=== PATIENT | female | born 1960 | race Caucasian/White ===

== ENCOUNTER → 2017-02-25 09:57 | Outpatient (CLI) | payer OTHER ==
[2014-11-17 06:04] VITALS: BMI 34.0
[~2017-02-25 09:57] MED LIST: ADIPEX-P37.5 MG PO; BAYER CHEWABLE81 MG PO; DEMEROL50 MG PO; GABAPENTIN100 MG PO; MYRBETRIG PO; PRILOSEC20 MG PO; PROMETRIUM100 MG PO; REQUIP0.5 MG PO; TOPAMAX50 MG PO; WELLBUTRIN SR150 MG PO; ZANAFLEX4 MG PO
== END | disposition home or self-care (01) ==
LOC: D.CT 09:57
DX: R10.84 Generalized abdominal pain (principal); K92.1 Melena

== ENCOUNTER 2017-03-12 13:00 | Outpatient (CLI) | payer OTHER ==
[2014-11-17 06:04] VITALS: BMI 34.0
== END 2017-03-12 23:59 | disposition home or self-care (01) ==
LOC: D.MAMMO 13:00
DX: Z12.31 Encounter for screening mammogram for malignant neoplasm of breast (principal)

== ENCOUNTER → 2018-04-21 18:33 | Outpatient (CLI) | payer OTHER ==
[2014-11-17 06:04] VITALS: BMI 34.0
== END | disposition home or self-care (01) ==
LOC: D.MAMMO 09:45
DX: Z12.31 Encounter for screening mammogram for malignant neoplasm of breast (principal)

== ENCOUNTER → 2018-05-05 08:47 | Outpatient (CLI) | payer OTHER ==
[2014-11-17 06:04] VITALS: BMI 34.0
== END | disposition home or self-care (01) ==
LOC: D.MRI 08:47
DX: M25.562 Pain in left knee (principal)

== ENCOUNTER 2019-08-17 08:00 | Outpatient (CLI) | payer OTHER ==
[2014-11-17 06:04] VITALS: BMI 34.0
== END 2019-08-17 23:59 | disposition home or self-care (01) ==
LOC: D.MAMMO 08:00
PROVIDERS: ATTEND Family Medicine
DX: Z12.31 Encounter for screening mammogram for malignant neoplasm of breast (principal)

== ENCOUNTER 2019-10-23 14:54 | Inpatient (IN) | payer OTHER ==
[~2019-10-23] VITALS: Ht 154.9 cm; Wt 81.1 kg
--- NOTE | ~2019-10-23 | DS ---
PATIENT:PHOENIX ZAPATA :58 MEDICAL RECORD: [id number] DISCHARGE SUMMARY ADMISSION DATE: 10/24/19 DISCHARGE DATE: 10/25/19 DATE OF SERVICE: 10/25/2019 DIAGNOSES: 1. Paroxysmal atrial fibrillation. 2. Chest pain. 3. Normal cardiac catheterization. 4. Hypertension. 5. Hyperlipidemia. HOSPITAL COURSE: Ms. Zapata presents with anginal symptomatology in association with atrial fibrillation. Atrial fibrillation was controlled with sotalol. She underwent cardiac catheterization revealing no significant disease. Discharged home with the addition of sotalol 40 mg b.i.d. to her medical regimen. Follow up with [facility] in 1 month. TRANSINT:[id number] Voice Confirmation ID: [id number] DOCUMENT ID: [id number] EDILIA AMADOR MD CC: [id number] DICTATION DATE: 10/25/19 1049 IS ANALYST: 10/26/19 0534 DIS IN 10/25/19 [facility] [address] [place] [address]
--- NOTE | ~2019-10-23 | HEMODYNAMI ---
PATIENT:PHOENIX GENTILE MEDICAL RECORD: [id number] : 58 [id number] ADMISSION DATE: 10/24/19 Generatedon:10/25/201910:58 Patient name: PHOENIX GENTILE Patient #: [id number] SSN: [id number] : 1960 Date of study: 10/25/2019 Page: Of Hemodynamic Procedure Report Patient Data Patient Demographics Procedure consent was obtained First Name: PHOENIX Gender: Female Last Name: KRUPA : 1960 [facility] Initial: L Age: 59 year(s) Patient #: [id number] Race: SSN: [id number] Additional ID: [id number] Contact details Address: [address] [place] [address] [facility] State: [place] City: [place] Zip code: [address] Past Medical History Allergies Allergen Reaction Date Comments Reported Other allergy 10/25/2019 CODEINE Admission Admission Data Admission Date: 10/24/2019 Admission Time: 13:57 Arrival Date: 10/25/2019 Arrival Time: 0:00 Room #: D.2124 Insurance Payor: Private health insurance [facility] #: [id number] Height (in.): 61.02 BSA: 1.8 (m2) Height (cm.): 155 BMI: 33.71 (kg/m2) Weight (lbs.): 178.58 Weight (kg.): 81 Lab Results Lab Result Date: 10/25/2019 Lab Result Time: 0:00 Biochemistry Name Units Result Min Max BUN mg/dl 29 --(----)-* 7 18 Creatinine mg/dl 1.2 --(---*)-- 0.6 1.3 eGFR ml/min 48 *-(----)-- 90 120 NONAFRICAN Troponin l ng/ml 0.017 --(-*--)-- 0 0.06 CBC Name Units Result Min Max Hematocrit % 40.2 -*(----)-- 42 54 Hemoglobin g/dl 12.9 -*(----)-- 13.5 17.5 Procedure Procedure Types Cath Procedure Diagnostic Procedure [facility] w/Coronaries Sedation Charges Moderate Sedation up to 15 minutes Procedure Description Procedure Date Procedure Date: 10/25/2019 Procedure Start Time: 10:37 Procedure End Time: 10:56 Procedure Staff Name Function Rc Fragoso MD Performing Physician Annetta Vargas RT Monitor Marcos Beltre RN Nurse Kerrie Benjamin RT Scrub Indication Unstable angina Procedure Data Cath Procedure Fluoroscopy Diagnostic fluoroscopy Total fluoroscopy Time: 2.6 time: 2.6 min min Diagnostic fluoroscopy Total fluoroscopy dose: 361 dose: 361 mGy mGy Contrast Material Contrast Material Type Amount (ml) Isovue 300 30 Entry Location Entry Primary Successful Side Size Upsize Upsize Entry Closure Schumacher ccessful Closure Location (Fr) 1 (Fr) 2 (Fr) Remarks Device Remarks Radial Right 6 Fr Mechanical artery Short Compression Estimated blood loss: 5 ml Diagnostic catheters Device Type Used For End Catheter Placement DIAGNOSTIC [facility] 110cm 5 Procedure Fr catheter ([id number]) Procedure Complications No complications Procedure Medications Medication Administration Route Dosage Oxygen etCO2 Nasal cannula 2 l/min Lidocaine 2% added to field 20 Heparin Flush Bag added to field 2 bags (1000units/500ml NS) 0.9% NaCl I.V. 100 ml/hr Radial Cocktail I.A. 1 syringe (Verapamil 2mg/Nitro 400mcg/Heparin 1500units) Versed I.V. 1 mg Fentanyl I.V. 50 mcg Versed I.V. 1 mg Fentanyl I.V. 25 mcg Versed I.V. 0.5 mg 0.9% NaCl I.V. bolus 500 ml Hemodynamics Rest BSA: 1.8 (m2) HGB: 12.9 (g/dl) O2 Consumption: Estimated: 161.7 (ml/min) O2 Cons umption indexed: Estimated:89.83 (ml/min/m) Heart Rate: 57 (bpm) Snapshots Pre Cath Intra NCS Post Cath Vital Signs Time Heart Resp SPO2 etCO2 NIBP (mmHg) Rhythm Pain Sedation Rate (ipm) (%) (mmHg) Status Level (bpm) 10:01:46 65 19 93 0 163/85(114) NSR 0 (11) 10(A) , No pain 10:06:08 62 22 96 0 152/79(111) NSR 0 (11) 10(A) , No pain 10:10:31 57 11 96 0 131/59(93) NSR 0 (11) 10(A) , No pain 10:14:47 54 12 94 0 115/59(74) NSR 0 (11) 10(A) , No pain 10:18:57 53 13 95 0 108/59(75) NSR 0 (11) 10(A) , No pain 10:23:06 53 12 96 0 104/54(70) NSR 0 (11) 10(A) , No pain 10:27:18 52 13 96 0 102/46(69) NSR 0 (11) 10(A) , No pain 10:31:26 52 13 96 0 106/52(77) NSR 0 (11) 10(A) , No pain 10:35:42 49 19 94 0 87/36(59) NSR 0 (11) 10(A) , No pain 10:39:48 50 15 95 0 91/41(65) NSR 0 (11) 9(A) , No pain 10:43:56 51 15 94 0 83/45(60) NSR 0 (11) 9(A) , No pain 10:48:02 50 16 94 0 85/42(68) NSR 0 (11) 9(A) , No pain 10:51:55 54 15 95 0 76/39(66) NSR 0 (11) 10(A) , No pain 10:56:21 53 15 96 0 91/41(63) NSR 0 (11) 10(A) , No pain Medications Time Medication Route Dose Verified Delivered Reason Notes Effectiveness by by 10:00:45 Oxygen etCO2 2 l/min Rc Rodríguez used for Nasal Richmond Beltre RN procedure cannula 10:00:51 Lidocaine 2% added 20ml Rc Tatum for local to vial Richmond Fragoso MD anesthetic field 10:00:57 Heparin Flush added 2 bags Rc Tatum used for Bag to Richmond Fragoso MD procedure (1000units/500ml field NS) 10:01:06 0.9% NaCl I.V. 100 Rc Rodríguez Per ml/hr Richmnod Beltre RN physician 10:30:33 Versed I.V. 1 mg Rc Buffie for sedation Richmond Beltre RN 10:30:40 Fentanyl I.V. 50 mcg Rc Rodríguez for sedation Richmond Beltre RN 10:36:03 Versed I.V. 1 mg Rc Hanksie for sedation Richmond Beltre RN 10:36:06 Fentanyl I.V. 25 mcg Rc Rodríguez for sedation Richmond Beltre RN 10:36:37 0.9% NaCl I.V. 500 ml Rc Rodríguez Per bolus Richmond Beltre RN physician 10:39:20 Radial Cocktail I.A. 1 Rc Tatum for (Verapamil syringe Richmond Fragoso MD vasodilation 2mg/Nitro 400mcg/Heparin 1500units) 10:40:26 Versed I.V. 0.5 mg Rc Rodríguez for sedation Richmond Beltre RN Procedure Log Time Note 9:37:20 Diagnostic Cath Status : Urgent 9:37:57 Indication : Unstable angina 9:38:41 Procedure Status Urgent Heart Cath (IP). 9:38:45 Marcos Beltre RN sent for patient. Start room use. 9:38:49 Time tracking: Regular hours (M-F 7:00 - 5:00) 9:39:04 Plan of Care:Hemodynamics will remain stable., Cardiac rhythm will remain stable., Comfort level will be maintained., Respiratory function will remain adequate., Patient/ family verbilizes understanding of procedure., Procedure tolerated without complication., Recovers from procedure without complications.. 9:42:01 Lab Result : Troponin l 0.017 ng/ml 9:42:01 Lab Result : Creatinine 1.2 mg/dl 9:42:01 Lab Result : BUN 29 mg/dl 9:42:01 Lab Result : Hematocrit 40.2 % 9:42:01 Lab Result : Hemoglobin 12.9 g/dl 9:42:01 Lab Result : eGFR NONAFRICAN 48 ml/min 9:42:33 Informed consent obtained and on chart 9:43:56 Arrival Date: 10/25/2019 12:00:00 AM 9:44:10 Insurance Payor : Private health insurance 9:44:18 Patient Height : 61.02 inches 9:44:22 Patient Weight : 178.58 lbs 9:52:41 Risk of Mortality: .1 9:52:47 Risk of blood transfusion: 0.8 9:52:52 Risk of ZO: 2.7 9:53:35 Patient received from Med II to CCL 2 Alert and oriented. Tansferred to table in Supine position. 9:53:37 Warm blankets applied, and terri hugger turned on for patient comfort. 9:53:38 Correct patient and procedure confirmed by team. 9:53:39 ECG and BP/O2 sat monitors applied to patient. 10:00:35 Vital chart was started 10:00:45 Oxygen 2 l/min etCO2 Nasal cannula was administered by Marcos Beltre RN; used for procedure; Verbal order read back and verified. 10:00:51 Lidocaine 2% 20ml vial added to field was administered by Rc Fragoso MD; for local anesthetic; Verbal order read back and verified. 10:00:57 Heparin Flush Bag (1000units/500ml NS) 2 bags added to field was administered by Rc Fragoso MD; used for procedure; Verbal order read back and verified. 10:01:06 0.9% NaCl 100 ml/hr I.V. was administered by Marcos Beltre RN; Per physician; Verbal order read back and verified. 10:08:45 ACC Patient presents with Unstable Angina CCS Anginal Class 2--Slight limitation of ordinary activity. 10:08:55 Baseline sample Acquired. 10:09:14 Rhythm: sinus rhythm 10:09:16 Full Disclosure recording started 10:09:17 - 10:09:24 H&P Date Dictated: 10/25/2019 Within 30 days and on chart.. 10:09:26 Pre-procedure instructions explained to patient. 10:09:27 Pre-op teaching completed and patient verbalized understanding. 10:09:32 Family in patients room. 10:09:35 Patient NPO since Midnight. 10:09:50 Patient allergic to Other allergyCODEINE 10:09:56 Is the patient allergic to Iodine/contrast media? No. 10:10:00 Was the patient premedicated? Yes 10:10:14 Is patient on blood thinner?No 10:10:20 Patient diabetic? No. 10:10:26 Patient not . Patient is over age 55. 10:10:27 ----Pre-sedation anethsthesia assessment.---- 10:10:33 Previous problem with sedation/anesthesia? No ? 10:10:35 Snore? Yes 10:10:37 Sleep apnea? No 10:10:39 Deviated septum? No 10:10:42 Opens mouth fully? Yes 10:10:44 Sticks out tongue? Yes 10:10:48 Airway obstruction? No ? 10:10:52 Dentures? No ? 10:11:01 Pre procedure: right dorsailis pedis pulse 1+ Palpable, but thready & weak; easily obliterated 10:11:06 Modified Choco's test Ulnar < 7 seconds 10:11:28 Patient pain scale 0/10 ?. 10:11:38 IV patent on arrival in right antecubital with 0.9% NaCl at KVO. 10:11:43 Lab results completed and on chart. 10:12:03 Stress Test: no; N/A NOT DONE 10:12:09 Right Radial & Right Groin area was prepped with chlora-prep and draped in sterile fashion 10:12:10 Alarms reviewed by R. N. 10:12:11 Sharps counted by scrub and verified by R.N. 10:12:28 Use device set Radial Dx or PCI 10:12:30 ACIST Syringe (37766) opened to sterile field. 10:12:31 Medline Cath Pack ([id number]) opened to sterile field. 10:12:32 Bag Decanter () opened to sterile field. 10:12:32 ACIST Hand Control (31363) opened to sterile field. 10:12:33 ACIST Manifold (67509) opened to sterile field. 10:12:34 Tegaderm 4 x 4 (1626W) opened to sterile field. 10:12:35 MBrace Wrist Support ([id number]) opened to sterile field. 10:12:37 EMERALD Guide Wire (648-890) opened to sterile field. 10:12:38 SHEATH 6FR RAIN (5487536) opened to sterile field. 10:14:22 Zero performed for pressure channel P1 10:29:01 Physician arrived 10:29:02 --------ALL STOP TIME OUT------ 10:29:03 Final Timeout: patient, procedure, and site verified with staff and physician. All members of the team are in agreement. 10:29:06 Right Radial & Right Groin site verified by team. 10:29:16 Fire Safety Assessment: A--An alcohol-based skin anteseptic being used preoperatively., C--Open oxygen or nitrous oxide is being used., D--An ESU, laser, or fiber-optic light is being used. 10:29:24 Physical assessment completed. ASA score P 2 - A patient with mild systemic disease as per Rc Fragoso MD. 10:29:33 3a) 45-59 Moderately reduced kidney function. 10:29:38 Maximum allowable contrast dose (3.7 X eGFR X 0.75)133 ml. 10:29:46 Sedation plan: IV Moderate Sedation Medication:Versed, Fentanyl 10:30:33 Versed 1 mg I.V. was administered by Marcos Beltre RN; for sedation; Verbal order read back and verified. 10:30:40 Fentanyl 50 mcg I.V. was administered by Marcos Beltre RN; for sedation; Verbal order read back and verified. 10:36:03 Versed 1 mg I.V. was administered by Marcos Beltre RN; for sedation; Verbal order read back and verified. 10:36:06 Fentanyl 25 mcg I.V. was administered by Marcos Beltre RN; for sedation; Verbal order read back and verified. 10:36:37 0.9% NaCl 500 ml I.V. bolus was administered by Marcos Beltre RN; Per physician; Verbal order read back and verified. 10:36:48 Procedure started. 10:37:38 Local anesthetic to right radial artery with Lidocaine 2% by Rc Fragoso MD.INITIAL ACCESS ONLY 10:38:39 A 6 Fr Short sheath was inserted into the Right Radial artery 10:39:03 A DIAGNOSTIC [facility] 110cm 5 Fr catheter (996388) was advanced over the wire and used for Procedure. 10:39:20 Radial Cocktail (Verapamil 2mg/Nitro 400mcg/Heparin 1500units) 1 syring e I.A. was administered by Rc Fragoso MD; for vasodilation; Verbal order read back and verified. 10:39:50 LV gram done using HAWKINS 10:39:58 Injector settings: Ml/sec: 5, Volume: 15, 10:40:26 Versed 0.5 mg I.V. was administered by Marcos Beltre RN; for sedation; Verbal order read back and verified. 10:40:47 EF : 80 % 10:41:47 Catheter removed. 10:41:49 GUIDE 6FR AR 1.0 catheter (PB1QH06) opened to sterile field. 10:41:55 RCA angiography performed. 10:42:01 Injector settings: Ml/sec: 3, Volume: 6, 10:42:32 Catheter removed. 10:42:35 GUIDE 6FR EBU 3.0 catheter (UH3QAK80) opened to sterile field. 10:43:22 LCA angiography performed. 10:43:28 Injector settings: Ml/sec: 3, Volume: 6, 10:44:59 Catheter removed. 10:45:07 Procedure ended.(Physican Out) 10:45:27 ZEPHYR REGULAR TR BAND (486319) opened to sterile field. 10:45:52 Sheath removed intact; hemostasis achieved with Mechanical Compression to the Right Radial artery. 10:46:21 Contrast amount:Isovue 300 30ml. 10:46:25 Maximum allowable dose exceeded? No. 10:46:34 Fluoroscopy time 02.60 minutes. 10:46:41 Fluoroscopy dose: 361 mGy 10:46:41 Flurop Dose total: 361 10:46:51 Dose Area Product 02693 mGy/cm. 10:46:53 Sharps counted by scrub and verified by R.N. 10:46:58 Kirkland band inflated with 10cc of air. 10:47:00 Insertion/operative site no bleeding no hematoma. 10:47:18 Post right radial artery:stable 10:47:33 Post Procedure Pulses reassessed and unchanged 10:47:42 Post-procedure physical assessment completed. ASA score P 2 - A patient with mild systemic disease as per Rc Fragoso MD. 10:47:47 Post procedure rhythm: unchanged. 10:47:52 Estimated blood loss: 5 ml 10:47:57 Post procedure instruction explained to patient.Patient verbalizes understanding. 10:47:58 Patient needs reinforcement of post procedure teaching. 10:48:45 Procedure type changed to Cath procedure, Diagnostic procedure, LHC, LH C w/Coronaries, Sedation Charges, Moderate Sedation up to 15 minutes 10:48:52 Procedure and supply charges have been captured, reviewed, submitted an d are correct. 10:49:44 Procedure Complication : No complications 10:49:48 Vital chart was stopped 10:49:52 [facility] Findings: mild to moderate CAD (<70%) 10:49:56 Operative report dictated upon procedure completion. 10:49:57 See physician's report for complete and final results. 10:50:00 Report given to [facility]. 10:50:10 Patient transfered to [facility] with Bed. 10:56:55 Procedure ended. 10:56:55 Full Disclosure recording stopped Device Usage Item Name Manufacture Quantity Catalog Hospital Part Current Minima l Lot# / Number Charge Number Stock Stock Serial# Code ACIST Acist 1 64736 569083 591008 950271 20 Syringe Medical (41209) Systems Inc Medline Medline 1 [id number] 207857 98570 085667 5 Cath Pack ([id number]) Bag Microtek 1 692754 72716 523719 5 Decanter Medical Inc. () ACIST Hand Acist 1 88120 533568 295002 858880 5 Control Medical (10877) Systems Inc ACIST Acist 1 59451 043104 023885 271845 5 Manifold Medical (47827) Systems Inc Tegaderm 4 3M 1 1626W 686317 543521 167658 5 x 4 (1626W) MBrace Advanced 1 140-0250-00 241714 55338 106502 5 Wrist Vascular Support Dynamics ([id number]) EMERALD Cardinal 1 502-455 726894 045108 238510 5 Guide Wire Health (502-455) SHEATH 6FR Cardinal 1 7974437 389918 0105922 115421 5 [facility] (0827708) DIAGNOSTIC Terumo 1 40-5013 143309 594681 744619 5 [facility] 110cm 5 Fr catheter (943897) GUIDE 6FR Medtronic 1 [id number] 923068 53228 931720 1 AR 1.0 catheter (GV9TH73) GUIDE 6FR Medtronic 1 [id number] 815570 20362 835124 0 EBU 3.0 catheter (ZZ9BYC36) ZEPHYR Cardinal 1 906576 288723 9747960 051168 5 REGULAR TR Health BAND (561446) Signature Audit Roxana Stage Time Signature Unsigned Intra-Procedure 10/25/2019 Annetta 10:57:18 AM Alicia RT(R) (CV); Marcos Beltre RN; Rc Fragoso MD Signatures Performing Physician : Signature : Rc Fragoso MD Date : Time : Monitor : Annetta Signature : Alicia RT Date : Time : Nurse : Marcos Beltre RN Signature : Date : Time : [place] [address] [place] [address]
--- NOTE | ~2019-10-23 | EC ---
PATIENT:PHOENIX GENTILE DATE OF SERVICE: 10/24/19 SEX: F MEDICAL RECORD: [id number] DATE OF : 58 LOCATION:D. D.212 AGE OF PATIENT: 59 ADMISSION DATE: 10/24/19 REFERRING PHYSICIAN: INTERPRETING PHYSICIAN: EDILIA FRAGOSO MD ECHOCARDIOGRAM REPORT ECHO CHARGES 4 ECHO COMPLETE Date: 10/24/19 CLINICAL DIAGNOSIS: AFIB ECHOCARDIOGRAPHIC MEASUREMENTS (adult normal given) AC root (d.<3.7cm) 2.6 cm LV Septum d (<1.2 cm> 1.2 cm Valve Excursion 1.5 cm LV Septum (systole) 1.5 cm Left Atria (s.<4.0cm> 4.3 cm LVPW d(<1.2cm) 1.2 cm RV (d.<2.3cm) 2.5 cm LVPW (sytole) 2.0 cm LV diastole(<5.6CM) 4.2 cm MV E-F(>70mm/sec) cm LV systole 2.9 cm LVOT Diameter 1.8 cm MV exc.(>10mm) cm Est.ejection fraction (50-75%) % DOPPLER: LVIT cm/sec A 68 cm/sec E 54 cm/sec LA cm/sec RVSP 34.8 mmHg LVOT 91 cm/sec AOP1/2T m/s Asc. Ao 120 cm/sec RVOT 65 cm/sec RA cm/sec PA 82 cm/sec AV Gradient Peak 5.7 mmHg AV Mean 2.8 mmHg AV Area 2.0 cm MV Gradient Peak 2.9 mmHg MV Mean 1.2 mmHg MV Area cm COMMENTS: Shell Reprint Operator: Abdi JOSEPH Accordion Maker: 1 Dr. Fragoso TAPE# PACS Pericardial Effusion N DATE OF SERVICE: 10/24/2019 ECHOCARDIOGRAM FINDINGS: 1. Left ventricular chamber size is within normal limits. Left ventricular systolic function is normal. Overall ejection fraction estimated at 55%. 2. Left atrium is enlarged at 4.3 cm. Right atrium and right ventricle chamber sizes are within normal limits. 3. Valvular structures have normal structure and motion. ECHOCARDIOGRAM REPORT [id number] PHOENIX GENTILE 4. Doppler interrogation reveals only trace mitral regurgitation, no other valvular insufficiency or stenosis. 5. No evidence of pericardial effusion or left ventricular thrombus. TRANSINT:[id number] Voice Confirmation ID: [id number] DOCUMENT ID: [id number] EDILIA FRAGOSO MD CC: [id number] DICTATION DATE: 10/25/19 1300 YARDAGE CONTROL OPERATOR: 10/25/192002 DIS IN 10/25/19 [facility] [address] [place] [address]
--- NOTE | ~2019-10-23 | OP ---
PATIENT NAME: PHOENIX GENTILE MEDICAL RECORD: [id number] :58 LOCATION:D.M2 D.2124 ADMISSION DATE:10/24/19 SURGEON: EDILIA AMADOR MD DATE OF OPERATION: 10/25/2019 PROCEDURES: 1. Left heart catheterization. 2. Selective coronary angiography. 3. Left ventriculogram. INDICATION: Angina versus new onset atrial fibrillation. PROCEDURE IN DETAIL: After informed consent was obtained and after detailed explanation of risks, benefits, as well as alternative therapies, the patient elected to proceed with angiogram and heart catheterization. The right radial area was prepped and draped in normal sterile fashion. Right radial artery was cannulated via modified Seldinger technique with placement of 6-Guinean sheath. All catheters exchanged through this sheath. FINDINGS: Left ventriculogram was performed in standard 30-degree HAWKINS view, reveals good cardiac wall motion, ejection fraction estimated 60%. SELECTIVE CORONARY ANGIOGRAPHY: Left main, less anterior descending, left circumflex, right coronary artery are smooth-walled vessels with no angiographic evidence of coronary artery disease. OVERALL IMPRESSION: 1. No angiographic evidence of coronary artery disease. 2. Normal left heart pressures. 3. Normal left ventricular systolic function. Chest pain is secondary to the dysrhythmia. Center medical management and treatment of dysrhythmia. TRANSINT:[id number] Voice Confirmation ID: [id number] DOCUMENT ID: [id number] EDILIA AMADOR MD CC: [id number] DICTATION DATE: 10/25/19 1050 EDUCATOR SENIOR CLINICAL: 10/25/191824 DIS IN 10/25/19 [facility] [address] [place] [address]
[2019-10-23 15:33] LABS: BASOPHILS 0.7 % (0-2); EOSINOPHILS 2.7 % (0-7); HEMATOCRIT 44.8 % (36.0-48.0); HEMOGLOBIN 15.3 g/dL (12-16); IMMATURE GRANULOCYTES 0.2 % (0-5); LYMPHOCYTES 35.7 % (15-50); MCH 31.2 pg (26.0-34.0); MCHC 34.2 g/dL (31.0-37.0); MCV 91.4 fL (80.0-100.0); MONOCYTES 12.1 % (2-11); NEUTROPHILS 48.6 % (40-80); RDW 12.1 % (11.5-14.5); WBC 5.5 10x3/uL (4.8-10.8)
[2019-10-23 15:35] LABS: PLATELET COUNT 250 10x3/uL (130-400)
[2019-10-23 15:37] LABS: CALC OSMOLALITY 292 mosm/kg (275-300); CALCIUM 9.8 mg/dL (8.5-10.1); CARBON DIOXIDE 26.2 mmol/L (21.0-32.0); CHLORIDE - SERUM 107 mmol/L (98-107); GLUCOSE 134 mg/dL (74-106); POTASSIUM - SERUM 3.5 mmol/L (3.5-5.1); SODIUM 144 mmol/L (136-145); UREA NITROGEN 23 mg/dL (7-18); eGFR NON AFRICAN AMERICAN 60 mL/min (90-120)
[2019-10-23 15:54] LABS: ALBUMIN 3.8 g/dL (3.4-5.0); ALKALINE PHOSPHATASE 71 U/L (46-116); ALT (SGPT) 40 U/L (10-68); BILIRUBIN - TOTAL 0.48 mg/dL (0.2-1.3); CKMB 1.8 U/L (0.0-3.6); CREATINE KINASE 149 UL (21-215); MAGNESIUM - SERUM 2.3 mg/dL (1.8-2.4); PRO BNP 1768 pg/mL (0-125); PROTEIN - SERUM 7.1 g/dL (6.4-8.2); TROPONIN-I 0.017 ng/mL (0.000-0.060)
[2019-10-23 17:30] VITALS: BP 150/62
[2019-10-23 18:00] VITALS: BP 136/68
[2019-10-23 18:30] VITALS: BP 140/59
--- NOTE | 2019-10-23 19:00 | NUR ---
REPORT GIVEN TO ROSALVA ISIDRO.
--- NOTE | 2019-10-23 19:50 | NUR ---
RECEIVED FROM ER, PT IS A&O X4, HISTORY AND MEDS COMPLETE, PLACED ON [id number], 20G. IV-NS@50, PROVIDED A SANDWICH AND DRINK, EXPLAINED WILL KEEP HER NPO AFTER MIDNIGHT PER ORDERS, BED IS LOW, SRX2, CALL LIGHT IN REACH, WILL CONTINUE PLAN OF CARE
[2019-10-23] MEDS ORDERED: LEVOTHYROXINE75 MCG PO (19:55)
[2019-10-23] MEDS ORDERED: ZETIA10 MG PO (19:56)
[2019-10-23] MEDS ORDERED: COREG 3.1253.125 MG PO (19:58)
--- NOTE | 2019-10-23 20:00 | NUR ---
ADMISSION ASSESSMENT COMPLETED. PT RESTING WITH NO DISTRESS. TELEMETRY SR. PLAN OF CARE INITIATED.
[2019-10-24] VITALS: BP 106/53
[2019-10-24 04:00] VITALS: BP 123/54
[2019-10-24 04:10] VITALS: BP 143/75; BMI 33.8
[2019-10-24 05:11] LABS: BASOPHILS 0.7 % (0-2); EOSINOPHILS 4.6 % (0-7); HEMATOCRIT 40.2 % (36.0-48.0); HEMOGLOBIN 12.9 g/dL (12-16); IMMATURE GRANULOCYTES 0.2 % (0-5); LYMPHOCYTES 44.7 % (15-50); MCH 30.3 pg (26.0-34.0); MCHC 32.1 g/dL (31.0-37.0); MONOCYTES 11.4 % (2-11); NEUTROPHILS 38.4 % (40-80); PLATELET COUNT 200 10x3/uL (130-400); RBC 4.26 10x6/uL (4.00-5.40); RDW 12.4 % (11.5-14.5); WBC 4.4 10x3/uL (4.8-10.8)
[2019-10-24 05:23] LABS: MCV 94.4 fL (80.0-100.0)
[2019-10-24 05:31] LABS: ANION GAP 12.7 mmol/L (8-16); CALCIUM 8.5 mg/dL (8.5-10.1); CARBON DIOXIDE 26.8 mmol/L (21.0-32.0); CREATININE - SERUM 1.2 mg/dL (0.6-1.3); PHOSPHOROUS 5.8 mg/dL (2.5-4.9); POTASSIUM - SERUM 3.5 mmol/L (3.5-5.1)
[2019-10-24 08:48] VITALS: BP 139/74
[2019-10-24 10:09] VITALS: Ht 154.9 cm; Wt 81.1 kg
[2019-10-24 17:00] VITALS: BP 149/65
--- NOTE | 2019-10-24 19:15 | NUR ---
RECEIVED REPORT, WILL ASSUME CARE OF PT, ASKING FOR A DRINK AND CRACKERS AND PEANUTBUTTER(provided)DENIES ANY OTHER NEEDS AT THIS TIME, BED IS LOW, SRX2, CALL LIGHT IN REACH, WILL CONTINUE PLAN OF CARE
[2019-10-24 20:40] VITALS: BP 162/74
[2019-10-25 00:30] VITALS: BP 126/51
--- NOTE | 2019-10-25 01:35 | NUR ---
I have reviewed this patient and I concur with the Shift Assessment completed by the Licensed Practical Nurse today this shift.
[2019-10-25 04:38] VITALS: BP 119/51
--- NOTE | 2019-10-25 07:20 | NUR ---
RECIEVE REPORT. RESTING IN BED WITH EYES CLOSED. NO SIGNS OF DISTRESS. CONTINUE PLAN OF CARE AND SAFETY PRECAUTIONS.
[2019-10-25 08:17] VITALS: BP 139/68
--- NOTE | 2019-10-25 11:18 | NUR ---
ARRIVE BACK TO ROOM VIA BED FROM RESIDENT SERVICE COORDINATOR. SEDATED. AROUSES TO STIMULI. SPOUSE AND FAMILY AT BEDSIDE. ZYTHO BAND TO RT WRIST CLEAN DRY INTACT. FREE FROM HEMATOMA. FREE FROM BLEEDING. BP-98/48, HR-53 SINUS EMMANUEL, O2 SAT-96 3LNC. CONTINUE PLAN OF CARE AND SAFETY PRECAUTIONS.
--- NOTE | 2019-10-25 13:33 | NUR ---
RESTING IN BED WITH EYES CLOSED. AROUSES TO VOICE. SPOUSE AT BEDSIDE. BEGIN DEFLATING ZYTHOBAND BY 2mL EVERY 15-20 MINUTES. CONTINUE PLAN OF CARE AND SAFETY PRECAUTIONS.
--- NOTE | 2019-10-25 14:09 | HP ---
PATIENT: PHOENIX ZAPATA MEDICAL RECORD: [id number] ACCOUNT: [id number] LOCATION:[address] : 58 ADMISSION DATE: 10/24/19 PCP: CRYSTAL GARCIA MD HISTORY AND PHYSICAL EXAMINATION DIAGNOSES: 1. Unstable angina. 2. Paroxysmal atrial fibrillation. 3. Family history of coronary artery disease. 4. Hypertension. 5. Hyperlipidemia. HISTORY OF PRESENT ILLNESS: Mrs. Zapata has no history of ischemic heart disease. For the past week, she has had neck pain and chest pain and very typical angina, dull aching sensation radiating to her jaw and down her arm, a pressure-like sensation. She did not know what the etiology of this was. She thought it was possibly her GERD. The pain has worsened during the week. She then felt severe pain yesterday, presented to the Emergency Room, was found to be in atrial fibrillation. She was given Betapace and she has converted to sinus rhythm. She, however, has continued to have the episodes of chest pressure this morning. Her troponin is normal. Heart rate is now in the 60s. Systolic blood pressures in the 130s. PHYSICAL EXAMINATION: CONSTITUTIONAL/GENERAL APPEARANCE: Well nourished, well developed, appears stated age. EYES: Lids and conjunctivae noninjected. No discharge. No pallor. ENT: Lips within normal limit. No cyanosis. No pallor. NECK: Carotid arteries, bilateral normal upstroke. No bruits. No thrills. No jugular venous pressure or distention. CERVICAL LYMPH NODES: Nontender. Nonenlarged. THYROID: Not enlarged. No nodules. CARDIOVASCULAR: Precordial exam, nondisplaced. No heaves or pericardial thrills. Rate and rhythm, regular. Heart sounds, normal S1, normal S2. No S3, no gallop, no rub. Systolic murmur, not heard. Diastolic murmur, not heard. RESPIRATORY: Respiratory effort, unlabored. Normal curvature. No thoracic deformity. No chest wall tenderness. Percussion, resonant. Auscultation, clear. No wheezes, no rales, no rhonchi. ABDOMEN: Soft, nondistended, nontender. No abdominal pain, no vomiting and normal appetite. MUSCULOSKELETAL: No joint tenderness, normal gait, normal tone. SKIN: Warm and dry. OVERALL IMPRESSION: 1. Atrial fibrillation, resolved with Betapace. We will discontinue her Coreg that she is on at home. Continue the Betapace. 2. Angina, very typical anginal symptomatology with continued class III and class IV anginal symptomatology despite medical management and sikhism of sinus rhythm. Most likely, she has hemodynamically significant coronary artery disease as etiology of the dysrhythmia and angina. We will proceed with coronary angiography in the a.m. Get an echocardiogram today for chamber size to set an overall LV function. TRANSINT:[id number] Voice Confirmation ID: [id number] DOCUMENT ID: [id number] HISTORY AND PHYSICAL [id number] PHOENIX ZAPATA JEFFREY MD at 1409 CC: [id number] DICTATION DATE: 10/24/19 1007 [address] PASTING: 10/24/19 1130 ADM IN [facility] [address] [place] [address]
[2019-10-25] MEDS ORDERED: BETAPACE 80 MG80 MG PO (14:26)
[2019-10-25] MEDS ORDERED: COREG 3.1253.125 MG PO (14:27)
[2019-10-25 15:45] VITALS: BP 107/55
--- NOTE | 2019-10-25 16:29 | NUR ---
ALERT AND ORIENTED X4. SITTING UP ON BED. RT WRIST BAND REMOVED. FREE FROM BLEEDING. FREE FROM HEMATOMA. DC RT AC IV TIP INTACT. DISCHARGE INSTRUCTIONS GIVEN VERBALLY AND WRITTEN. DISCHARGE PAPERS SIGNED ON CHART. ESCORT TO RIDE VIA WHEELCHAIR. REMIANS FREE FROM INJURY.
--- NOTE | 2019-10-25 17:42 | MORECARE ---
CASE MANAGEMENT DISCHARGE SUMMARY PATIENT: PHOENIX GENTILE UNIT: [id number] ADM DATE: 10/24/19 AGE: 59 : 58 SEX: F ROOM/BED: D.5476 AUTHOR: FARZANA,DOC PHYSICIAN: REFERRING PHYSICIAN: EDILIA AMADOR MD DATE OF SERVICE: 10/25/19 Discharge Plan Patient Name: PHOENIX GENTILE Facility: [facility]:[place] : 1960 Planned Disposition: Home Anticipated Discharge Date: 10/25/19 Discharge Date: 10/25/2019 Expected LOS: 1 Initial Reviewer: [email or web address] Initial Review Date: 10/23/2019 Generated: 10/25/19 6:42 pm Comments DCP- Discharge Planning Updated by [email or web address]: Cholo Reyes on 10/25/19 4:[address] Patient Name: PHOENIX GENTILE Admission Status: ER Accout number: [id number] Admission Date: 10-24-2019 : 1960 Admission Diagnosis: Attending: RAAD AMADOR Current LOS: 1 Anticipated DC Date: 10-25-2019 Planned Disposition: Home Primary Insurance: [employer] Discharge Planning Comments: CM MET WITH PT IN ROOM TO DISCUSS DISCHARGE PLANNING AND NEEDS. PT REPORTS LIVING AT HOME INDEPENDENTLY WITH SPOUSE. PT HAS NO MEDICAL EQUIPMENT AND NO OUTSIDE SERVICES ASSISTING IN THE HOME. CM DISCUSSED AVAILABILITY OF HOME HEALTH, REHAB SERVICES AND MEDICAL EQUIPMENT. PT DENIES DISCHARGE NEEDS, REPORTS HER SPOUSE WILL PICK HER UP FOR DISCHARGE HOME. FOOD AND NUTRITION TEACHER NURSE NOTIFIED. Hogshead Mat Inspector: Cholo Reyes DCPIA - Discharge Planning Initial Assessment Updated by [email or web address]: Cholo Reyes on 10/25/19 5:39 pm * Is the patient Alert and Oriented? Yes * How many steps to enter\exit or inside your home? * PCP DR GARCIA * Pharmacy [facility] * Preadmission Environment Home with Family * ADLs Independent * Equipment None * Other Equipment NO MEDICAL EQUIPMENT PROVIDER PREFERENCE * List name and contact numbers for known caregivers / representatives who currently or will assist patient after discharge: BARRY GENTILE, SPOUSE, * Verbal permission to speak to the caregivers and representatives has been obtained from the patient. N/A * Community resources currently utilized None * Please name any agencies selected above. NONE * Additional services required to return to the preadmission environment? No * Can the patient safely return to the preadmission environment? Yes * Has this patient been hospitalized within the prior 30 days at any hospital? No Patient Name: PHOENIX GENTILE Page [id number] at [id number] All edits/amendments must be made on the electronic document DICTATION DATE: 10/25/191741 PRODUCT MANAGER: RITA 10/25/191741 RPT#: [id number] DC DATE:10/25/19 STATUS: DIS IN [facility] [address] [place] [address] END OF REPORT
== END 2019-10-25 17:08 | disposition home or self-care (01) | DRG 287 ==
LOC: D.ER 14:54 → D.M2 19:03 → OBSVTIME 19:03 → D.M2 10-24 13:57
PROVIDERS: Family Medicine; ADMIT Internal Medicine Interventional Cardiology; ATTEND Internal Medicine Interventional Cardiology
PROC: B2151ZZ Fluoroscopy of Left Heart using Low Osmolar Contrast (ICD-10-PCS; 2019-10-25)
PROC: 4A023N7 Measurement of Cardiac Sampling and Pressure, Left Heart, Percutaneous Approach (ICD-10-PCS; 2019-10-25)
PROC: B2111ZZ Fluoroscopy of Multiple Coronary Arteries using Low Osmolar Contrast (ICD-10-PCS; principal; 2019-10-25 09:38)
DX: I48.0 Paroxysmal atrial fibrillation (principal); I10 Essential (primary) hypertension; E78.5 Hyperlipidemia, unspecified

== ENCOUNTER 2021-01-14 21:03 | Observation (INO) | payer OTHER ==
[~2021-01-14] VITALS: Ht 154.9 cm; Wt 82.7 kg
[~2021-01-14 21:03] MED LIST changes: +BETAPACE 80 MG80 MG PO; +BUPROPION XL300 MG PO; +COREG 3.1253.125 MG PO; +LEVOTHYROXINE75 MCG PO; -WELLBUTRIN SR150 MG PO; +ZETIA10 MG PO
[2021-01-14 21:26] LABS: BASOPHILS 0.9 % (0-2); EOSINOPHILS 3.9 % (0-7); HEMATOCRIT 41.3 % (36.0-48.0); HEMOGLOBIN 13.9 g/dL (12-16); LYMPHOCYTES 36.9 % (15-50); MCH 30.4 pg (26.0-34.0); MCHC 33.7 g/dL (31.0-37.0); MCV 90.4 fL (80.0-100.0); MEAN PLATELET VOLUME 8.6 fL (7.4-10.4); MONOCYTES 11.7 % (2-11); NEUTROPHIL ABS# 2.15 10x3/uL (1.56-6.13); NEUTROPHILS 46.6 % (40-80); PLATELET COUNT 198 10x3/uL (130-400); RBC 4.57 10x6/uL (4.00-5.40); RDW 12.4 % (11.5-14.5); WBC 4.6 10x3/uL (4.8-10.8)
[2021-01-14 21:35] LABS: CALC OSMOLALITY 281 mosm/kg (275-300); CALCIUM 8.5 mg/dL (8.5-10.1); CARBON DIOXIDE 25.7 mmol/L (21.0-32.0); CHLORIDE - SERUM 106 mmol/L (98-107); CREATININE - SERUM 1.1 mg/dL (0.6-1.3); GLUCOSE 116 mg/dL (74-106); POTASSIUM - SERUM 3.4 mmol/L (3.5-5.1); SODIUM 141 mmol/L (136-145); UREA NITROGEN 12 mg/dL (7-18); eGFR NON AFRICAN AMERICAN 53 mL/min (90-120)
[2021-01-14 21:48] LABS: ALBUMIN 4.1 g/dL (3.4-5.0); ALKALINE PHOSPHATASE 67 U/L (30-120); ALT (SGPT) 29 U/L (10-68); BILIRUBIN - TOTAL 0.42 mg/dL (0.2-1.3); MAGNESIUM - SERUM 2.3 mg/dL (1.8-2.4); PRO BNP 77 pg/mL (0-125); PROTEIN - SERUM 7.5 g/dL (6.4-8.2); THYROID STIMULATING HORMONE 2.12 uIU/mL (0.36-3.74)
[2021-01-14 21:55] LABS: TROPONIN-I < 0.017 ng/mL (0.000-0.060)
[2021-01-15] VITALS (7 sets, daily range): BP systolic 129–178; BP diastolic 67–85; Ht 154.9 cm; Wt 82.7 kg
--- NOTE | 2021-01-15 08:54 | NUR ---
AM MED GIVEN PER EMAR. PT AWAKE AND ALERT, RESTING IN BED. PT DENIES ANY PAIN OR NEEDS AT THIS TIME. CLWR.
--- NOTE | 2021-01-15 09:46 | NUR ---
RECIEVED UP IN BED WITH EYES OPENA ND TV ON. ALERT AND ORIETNED X4. UP AD FAVIAN TO B/R. IV TO RT FA SL. TELEMETRY IN PLACE. DENIES ANY NEEDS AT THIS TIME.
--- NOTE | 2021-01-15 11:01 | NUR ---
MED REC COMPLETED WITH PT AT THIS TIME. PT LYING IN BED WITH HOB RAISED, RR EVEN NON LABORED. NO NEEDS VOICED. CLWR
--- NOTE | 2021-01-15 15:48 | NUR ---
PT LYING IN BED WITH HOB RAISED WATCHING TV. PT RR EVEN NON LABORED. NO NEEDS VOICED, CLWR.
[2021-01-16 04:13] VITALS: BP 128/60
[2021-01-16 05:08] LABS: BASOPHILS 0.7 % (0-2); EOSINOPHILS 5.4 % (0-7); HEMATOCRIT 40.7 % (36.0-48.0); HEMOGLOBIN 13.3 g/dL (12-16); IMMATURE GRANULOCYTES 0.2 % (0-5); LYMPHOCYTES 32.6 % (15-50); MCH 29.9 pg (26.0-34.0); MCHC 32.7 g/dL (31.0-37.0); MCV 91.5 fL (80.0-100.0); MEAN PLATELET VOLUME 8.7 fL (7.4-10.4); MONOCYTES 11.9 % (2-11); NEUTROPHIL ABS# 2.11 10x3/uL (1.56-6.13); NEUTROPHILS 49.2 % (40-80); PLATELET COUNT 190 10x3/uL (130-400); RBC 4.45 10x6/uL (4.00-5.40); RDW 12.6 % (11.5-14.5); WBC 4.3 10x3/uL (4.8-10.8)
[2021-01-16 05:35] LABS: ALBUMIN 3.6 g/dL (3.4-5.0); ANION GAP 8.5 mmol/L (8-16); BILIRUBIN - TOTAL 0.33 mg/dL (0.2-1.3); CALCIUM 8.2 mg/dL (8.5-10.1); CARBON DIOXIDE 29.3 mmol/L (21.0-32.0); CREATININE - SERUM 1.2 mg/dL (0.6-1.3); POTASSIUM - SERUM 3.8 mmol/L (3.5-5.1); PROTEIN - SERUM 6.6 g/dL (6.4-8.2)
[2021-01-16 08:59] VITALS: BP 148/71
[2021-01-16] MEDS ORDERED: BETAPACE 80 MG80 MG PO (10:05)
[2021-01-16 12:19] VITALS: BP 153/75
--- NOTE | 2021-01-16 13:23 | NUR ---
PT AMBULATED TO ER FOR RN HEMODIALYSIS CHARGE.
== END 2021-01-16 13:24 | disposition home or self-care (01) ==
LOC: D.ER 21:03 → OBSVTIME 22:28 → D.M2 22:28
PROVIDERS: Emergency Medicine; Family Medicine; ADMIT Family Medicine Adult Medicine; ATTEND Family Medicine Adult Medicine
DX: R07.9 Chest pain, unspecified (principal); I10 Essential (primary) hypertension; I20.0 Unstable angina; D72.819 Decreased white blood cell count, unspecified; E87.6 Hypokalemia; I48.0 Paroxysmal atrial fibrillation; E78.5 Hyperlipidemia, unspecified